=== PATIENT | female | born 1975 | race Caucasian/White ===

== ENCOUNTER 2019-10-23 20:02 | Emergency (ER) | payer OTHER, SELFPAY ==
--- NOTE | 2019-10-23 20:03 | XRR_ITS ---
PROCEDURE INFORMATION: Exam: XR Left Foot Complete Exam date and time: 10/23/2019 8:42 PM Age: 44 years old Clinical indication: Pain and injury or trauma; Injury history: Not specified; Initial encounter; Blunt trauma; Foot; Left; Injury date: 10/23/19 TECHNIQUE: Imaging protocol: XR Left foot. Views: 3 or more views. COMPARISON: No relevant prior studies available. FINDINGS: Bones/joints: hindfoot-midfoot and midfoot-forefoot articulations are normal. metatarsals and the phalanges without an acute process. subtalar joint and the tibiotalar joint appears normal. Soft tissues: Normal. XR/XR foot LT min 3V* [id number] IMPRESSION: Normal foot
[2019-10-23 20:14] VITALS: PULSE 76; RESP 16; TEMP 37; O2SAT 98
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
== END 2019-10-23 21:06 | disposition home or self-care (01) ==
PROVIDERS: Emergency Provider Nurse Practitioner Family
DX: S99.922A Unspecified injury of left foot, initial encounter (principal); W22.09XA Striking against other stationary object, initial encounter
CPT/HCPCS: 12345; 73630; 99281; 99282